=== PATIENT | female | born 1980 | race Caucasian/White ===

== ENCOUNTER 2017-07-29 13:51 | Emergency (ER) | payer BC ==
[2017-07-29] MEDS ORDERED: Sulfamethox/Trimethoprim DS 800/160* TAB PO ONE (16:33)
[2017-07-29 16:47] VITALS: BP 107/74
--- NOTE | 2017-07-30 18:52 | ED ---
Eugenio Gonzalez Thomas, scribed for Alejandro Grimm MD on 07/29/17 at 1635 . Skin Complaint - HPI Summary HPI Summary: The pt is a 36 y/o F presenting to the ED c/o an abscess in her gluteal crease that she first noticed in the last few days. She has had cysts in the region previously, and some of these have been incised and drained. The pt rates the pain 5/10. The pain is aggravated by movement and touch. It is alleviated by nothing. 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 In the past, the patients abscesses have been relieved with a hot bath, although she says her current abscess is too severe for this treatment. PMHx: abscesses. PSHx: incisions and drainages. SHx: no smoking, no alcohol use, no illicit drugs. FHx : DM, CAD. - History of Current Complaint Chief Complaint: EDGeneral Time Seen by Provider: 07/29/17 14:41 Stated Complaint: ABSCESS Hx Obtained From: Patient Onset/Duration: Started Days Ago - onset a few days ago, Still Present Timing: Constant Current Severity: Moderate Pain Intensity: 5 Pain Scale Used: 0-10 Numeric Skin Location: Other: - Gluteal crease Character: Pain, Redness, Raised Aggravating Symptom(s): Touch, Other: - Movement Alleviating Symptom(s): Nothing Associated Signs & Symptoms: Negative Related History: Other: - Hx of abscesses - Allergy/Home Medications Allergies/Adverse Reactions: Allergies Allergy/AdvReac Type Severity Reaction Status Date / Time Penicillins Allergy Rash And Verified 04/28/17 09:08 Itching PMH/Surg Hx/FS Hx/Imm Hx Previously Healthy: No Endocrine/Hematology History: Denies: Hx Diabetes Cardiovascular History: Denies: Hx Hypertension, Hx Pacemaker/ICD History: Denies: Hx Renal Disease Sensory History: Denies: Hx Hearing Aid Psychiatric History: Denies: Hx Panic Disorder - Surgical History Surgery Procedure, Year, and Place: REMOVED CYST ON NECK/NEAR TAIL BONE Infectious Disease History: No Infectious Disease History: Denies: History Other Infectious Disease, Traveled Outside the [place] in Last 30 Days - Family History Known Family History: Positive: Cardiac Disease, Diabetes - Social History Alcohol Use: None Hx Substance Use: No Substance Use Type: Reports: None Hx Tobacco Use: No Smoking Status (MU): Never Smoked Tobacco Have You Smoked in the Last Year: No Review of Systems Negative: Fever Positive: Other - Abscess on gluteal cleft All Other Systems Reviewed And Are Negative: Yes Physical Exam - Summary Physical Exam Summary: VITAL SIGNS: Reviewed. GENERAL: Patient is a well-developed and nourished female is lying comfortable in the stretcher. Patient is not in any acute respiratory distress. HEAD AND FACE: No signs of trauma. No ecchymosis, hematomas or skull depressions. No sinus tenderness. EYES: PERRLA, EOMI x 2, No injected conjunctiva, no nystagmus. EARS: Hearing grossly intact. Ear canals and tympanic membranes are within normal limits. MOUTH: Oropharynx within normal limits. NECK: Supple, trachea is midline, no adenopathy, no JVD, no carotid bruit, no c- spine tenderness, neck with full ROM. CHEST: Symmetric, no tenderness at palpation LUNGS: Clear to auscultation bilaterally. No wheezing or crackles. CVS: Regular rate and rhythm, S1 and S2 present, no murmurs or gallops appreciated. ABDOMEN: Soft, non-tender. No signs of distention. No rebound no guarding, and no masses palpated. Bowel sounds are normal. EXTREMITIES: FROM in all major joints, no edema, no cyanosis or clubbing. NEURO: Alert and oriented x 3. No acute neurological deficits. Speech is normal and follows commands. SKIN: Dry and warm. On her gluteal crease, there is an area with erythema and induration. It is tender. Triage Information Reviewed: Yes Vital Signs On Initial Exam: Initial Vitals Temp Pulse Resp BP Pulse Ox 98.1 F 97 20 148/79 100 07/29/17 13:56 07/29/17 13:56 07/29/17 13:56 07/29/17 13:56 07/29/17 13:56 Vital Signs Reviewed: Yes - [place] Coma Scale Coma Scale Total: 15 Procedures - Incision and Drainage Site: Left middle gluteus Anesthesia: Lidocaine - 1% without Epi Instrument(s): Scalpel Packing: Other - Iodoform Diagnostics - Vital Signs Vital Signs Temp Pulse Resp BP Pulse Ox 07/29/17 13:56 98.1 F 97 20 148/79 100 - Laboratory Lab Statement: Any lab studies that have been ordered have been reviewed, and results considered in the medical decision making process. Course/Dx - Course Assessment/Plan: The pt is a 36 y/o F presenting to the ED c/o an abscess in her gluteal crease that she first noticed in the last few days. She has had cysts in the region previously, and some of these have been incised and drained. The pt rates the pain 5/10. The pain is aggravated by movement and touch. It is alleviated by nothing. 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 In the past, the patients abscesses have been relieved with a hot bath, although she says her current abscess is too severe for this treatment. PMHx: abscesses. PSHx: incisions and drainages. SHx: no smoking, no alcohol use , no illicit drugs. FHx: DM, CAD. In the ED course, I I&Ded the abscess. I sent cultures. There were no complications. The patient was given Bactrim. The wound was packed. The patient will be discharged with follow up by primary care physician in three days for a wound check. The patient is hemodynamically stable and alert and oriented x3. - Diagnoses Provider Diagnoses: Abscess, Cellulitis Discharge - Discharge Plan Condition: Stable Disposition: HOME Prescriptions: Sulfamethox/Trimethoprim DS* [Bactrim DS 800/160 TAB*] 1 tab PO BID #20 tab Patient Education Materials: Cellulitis (ED), Abscess (ED) Referrals: Kvng Lucero MD [Primary Care Provider] - 3 Days Additional Instructions: Follow up with your primary care provider in 3 days. Return to the emergency department for any new or worsening symptoms. The documentation as recorded by the Eugenio connelly Thomas accurately reflects the service I personally performed and the decisions made by Alfa funez Walter, MD.
== END 2017-07-29 16:45 | disposition home or self-care (01) ==
LOC: ED 13:51
DX: L02.31 Cutaneous abscess of buttock (principal); L03.317 Cellulitis of buttock
CPT/HCPCS: 10061; 87070; 87205; 87640; 87641; 99281; A9270-GY

== ENCOUNTER 2017-07-30 10:30 | Emergency (ER) | payer BC ==
[2017-07-30] MEDS ORDERED: Lidocaine 2% PF * 5 ML VIAL INJ ONE (12:15)
[2017-07-30 12:19] VITALS: BP 117/69
--- NOTE | 2017-07-30 13:38 | UC ---
HPI Wound/Suture Re-check - HPI Summary HPI Summary: SEEN LAST NIGHT IN EMERGENCY DEPARTMENT FOR INCISION, DRAINAGE AND PACKING OF PILONIDAL CYST. NO FEVER, NO COMPLICATIONS. WOULD LIKE TO HAVE ABSCESS REPACKED. - History Of Current Complaint Chief Complaint: UCSkin Stated Complaint: SOFT TISSUE Time Seen by Provider: 07/30/17 12:00 Hx Obtained From: Patient Hx Last Menstrual Period: 07/30/17 Onset/Duration: Gradual Onset, Lasting Hours Severity: Moderate Pain Intensity: 4 Pain Scale Used: 0-10 Numeric - Allergies/Home Medications Allergies/Adverse Reactions: Allergies Allergy/AdvReac Type Severity Reaction Status Date / Time Penicillins Allergy Rash And Verified 07/30/17 10:36 Itching PMH/Surg Hx/FS Hx/Imm Hx Previously Healthy: Yes - Surgical History Surgical History: Yes Surgery Procedure, Year, and Place: REMOVED CYST ON NECK/NEAR TAIL BONE - Family History Known Family History: Positive: None Negative: Blood Disorder - Social History Occupation: Employed Full-time Lives: With Family Alcohol Use: None Substance Use Type: None Smoking Status (MU): Never Smoked Tobacco Have You Smoked in the Last Year: No - Immunization History Most Recent Influenza Vaccination: 10/09/14 Most Recent Tetanus Shot: 08/27/14 Most Recent Pneumonia Vaccination: none Review of Systems Constitutional: Negative Skin: Other - S/P I& D OF PILONIDAL CYST RIGHT GLUTEAL CREST Eyes: Negative ENT: Negative Respiratory: Negative Cardiovascular: Negative Gastrointestinal: Negative Genitourinary: Negative Motor: Negative Neurovascular: Negative Musculoskeletal: Negative Neurological: Negative Psychological: Negative Is Patient Immunocompromised?: No All Other Systems Reviewed And Are Negative: Yes Physical Exam Triage Information Reviewed: Yes Appearance: Well-Appearing, No Pain Distress, Well-Nourished Vital Signs: Initial Vital Signs Temp 97.2 F 07/30/17 10:37 Pulse 82 07/30/17 10:37 Resp 16 07/30/17 10:37 BP 113/67 07/30/17 10:37 Pulse Ox 100 07/30/17 10:37 Vital Signs Reviewed: Yes Eye Exam: Normal ENT Exam: Normal ENT: Positive: Normal ENT inspection, Hearing grossly normal, TMs normal Dental Exam: Normal Neck exam: Normal Neck: Positive: Supple, Nontender, No Lymphadenopathy Respiratory Exam: Normal Respiratory: Positive: Chest non-tender, Lungs clear, Normal breath sounds, No respiratory distress, No accessory muscle use Cardiovascular Exam: Normal Cardiovascular: Positive: RRR, No Murmur Abdominal Exam: Normal Musculoskeletal Exam: Normal Neurological Exam: Normal Psychological Exam: Normal Skin: Positive: Other - S/P I& D OF PILONIDAL CYST RIGHT GLUTEAL CREST Procedures - Procedure Summary Procedure Summary: S/P I& D OF PILONIDAL CYST RIGHT GLUTEAL CREST: PURULENT PACKING REMOVED. LIDOCAINE PLAIN 2% INJECTED INTO AREA. 1/"" STERILE PACKING APPLIED 15CM STRIP OF PLAIN GAUZE INTO ABSCESS CAVITY. PATIENT TOLERATED PROCEDURE WELL. Course/Dx - Differential Dx - Laceration/Wound Differential Diagnoses: Abscess, Cellulitis Provider Diagnoses: PILONIDAL CYST; RE-PACKING OF INCISED ABSCESS. Discharge - Discharge Plan Condition: Stable Disposition: HOME Patient Education Materials: Pilonidal Cyst (ED) Referrals: Brandin Pantoja MD [Medical Doctor] - Kvng Lucero MD [Primary Care Provider] -
== END 2017-07-30 12:50 | disposition home or self-care (01) ==
LOC: UCEAST 10:30
DX: Z48.00 Encounter for change or removal of nonsurgical wound dressing (principal); Z88.0 Allergy status to penicillin
CPT/HCPCS: 99212; G0463

== ENCOUNTER 2018-04-20 06:04 | Day surgery (SDC) | payer BC ==
--- NOTE | 2018-04-10 15:14 | HP ---
CC: Dr. Lucero at [facility] * ADMISSION HISTORY AND PHYSICAL: DATE OF ADMISSION: 04/20/18. ATTENDING SURGEON: Dr. Gustabo Flannery * (DALE Epps, dictating). CHIEF COMPLAINT: Pilonidal cyst. 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 She has had two I and Ds performed during that time with intermittent symptoms of pain, bleeding, and/or discharge, and occasionally spontaneous drainage. Her last acute event was the end of last year. Since then she has not had any acute infections or drainage. However, she does occasionally have pain in the tailbone region depending on her activity and/or position i.e., sitting. This is generally relieved by change in position. She was seen in the office by Dr. Flannery on 02/14/18, at which time, exam confirmed the presence of some scar tissue as well as a midline punctum in the intergluteal cleft. He discussed with her the indications, risks, benefits, and alternatives including the possibility of no surgery. She understands the expected perioperative course and would like to proceed to as scheduled with pilonidal cystectomy. PAST MEDICAL HISTORY: No significant active or past medical problems, other than gestational diabetes. PAST SURGICAL HISTORY: Her only previous surgery was excision of a right neck cyst under local anesthesia. CURRENT MEDICATIONS: None. She takes no supplements. DRUG ALLERGIES: PENICILLIN (unspecified childhood reaction). FAMILY HISTORY: Negative for anesthesia problems, bleeding or clotting disorder. SOCIAL HISTORY: The patient is . She has 2 children. 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 She denies use of tobacco, alcohol, or recreational drugs. REVIEW OF SYSTEMS: General: She was having some GI symptoms this past year and as a result of that and dietary modifications has lost 15 to 20 pounds. She states that her weight currently is stable and her GI symptoms have largely abated. Cardiovascular: In the past she would have occasionally have palpitations once or twice a year without any other associated symptoms. She has not had any recent problems. She otherwise denies chest pain, history of hypertension. She does report occasional feelings of what sounds like lightheadedness that respond well to change in position and with no other associated symptoms. Respiratory: No history of asthma, chronic cough, or shortness of breath. GI: As above. No additions. She has never undergone upper endoscopy or colonoscopy. : No problems reported. 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 She believes her last pelvic exams and Pap smear has done within the past 2 years. She was treated with dietary modifications for gestational diabetes. Endocrine: No current diabetes or thyroid dysfunction. Remainder of review of systems is negative. PHYSICAL EXAMINATION GENERAL: Well-nourished, well-developed female, in no acute distress. VITAL SIGNS: Height 5 feet 3 inches, weight 135 pounds, blood pressure 116/80, pulse 72, respirations 16, temperature 97.7. HEENT: Pupils equal, round, and reactive. EOMs intact. No conjunctival pallor. Oropharynx: Teeth in good repair. No intraoral lesions. NECK: No lymphadenopathy in the cervical or supraclavicular regions. No thyromegaly or masses. BREASTS: Not examined. LUNGS: Clear to auscultation. No wheezes. HEART: Regular rate and rhythm. No murmur noted. ABDOMEN: Soft, nontender to palpation. No palpable masses or organomegaly. BACK: No spinous process or CVA tenderness. In the intergluteal cleft, there is evidence of past pilonidal disease as well as a single midline punctum, see also above per Dr. Flannery's exam. GENITALIA: Not done. RECTAL: Not done. EXTREMITIES: No edema. NEUROLOGICAL: Grossly intact. SKIN: Warm and dry. No suspicious rashes or lesions noted (see also above for back). IMPRESSION: Pilonidal cyst. PLAN: Excision, pilonidal cyst. DALE EPPS [id number]/[facility] #: [id number] RODRIGO
[~2018-04-20 06:04] MED LIST: Buffered Lidocaine 0.9% SYRIN* 5 ML/SYR SYRINGE INTRADERM ONE
[2018-04-20] MEDS ORDERED: Buffered Lidocaine 0.9% SYRIN* 5 ML/SYR SYRINGE ONE (06:16)
[2018-04-20] MEDS ORDERED: Clindamycin 900 MG IVPREMIX(* 900 MG/50 ML SDV IV ONE (06:16)
[2018-04-20] MEDS ORDERED: Bupivacaine 0.5% PF 10 ML VIAL INJ ONE (07:13)
[2018-04-20] MEDS ORDERED: Bupivacaine 0.25% W/EPI* 10 ML SDV ONE (07:15)
[2018-04-20] MEDS ORDERED: fentaNYL* 50 MCG/ML 2 ML VIAL (100 MCG VIAL) ONE (07:24)
[2018-04-20] MEDS ORDERED: Midazolam* 1 MG/ML 5 ML VIAL (5 MG) ONE (07:24)
[2018-04-20] MEDS ORDERED: Propofol* 10 MG/ML 20 ML BTL IV PUSH ONE (07:39)
[2018-04-20] MEDS ORDERED: Naloxone* 0.4 MG/ML 1 ML VIAL IV PRN (07:53)
[2018-04-20] MEDS ORDERED: Ketorolac INJ* 30 MG/ML 1 ML VIAL ONE (08:38)
[2018-04-20 09:33] VITALS: BP 115/76
--- NOTE | 2018-04-20 11:14 | OP ---
CC: Dr. Gustabo Flannery; Dr. Kvng Lucero* OPERATIVE REPORT: DATE OF OPERATION: 04/20/18 - [facility] DATE OF : 80 SURGEON: Gustabo Flannery MD SHAREPOINT ADMIN: None. ANESTHESIOLOGIST: Josy Liu MD ANESTHESIA: LMAC anesthesia. PRE-OP DIAGNOSIS: Chronic pilonidal disease. POST-OP DIAGNOSIS: Chronic pilonidal disease. OPERATIVE PROCEDURE: Excision of pilonidal disease. DESCRIPTION OF PROCEDURE: The patient was supine on the operating room table. After intravenous sedation, she was put in the prone jackknife position with the buttocks taped apart. Pilonidal area was prepped with antiseptic and draped in a sterile fashion. Local infiltrative anesthesia was administered. Elliptical incision was created, carried more out to the left side where the previous excision tract was. This was carried down to the presacral fascia and specimen was sent in formalin for pathologic evaluation. The adipose was mobilized more on the patient's right side and 3-0 Vicryl used to bring the adipose together and then 4-0 Prolene interrupted sutures were used for the skin. Sterile gauze dressing was placed. She tolerated the procedure well, was awakened, and brought to Recovery in good condition. No complications. No drains. Pathologic specimen was piloidal disease. Sponge and instrument counts correct. Estimated blood loss was less than 20 mL. [id number]/[facility] #: [id number] MTDD
== END 2018-04-20 09:46 | disposition home or self-care (01) ==
LOC: OR 06:04
PROVIDERS: ATTEND Surgery
DX: L05.91 Pilonidal cyst without abscess (principal); R00.2 Palpitations; F41.9 Anxiety disorder, unspecified
CPT/HCPCS: 81025; 88304; J1885; J2250; J2704; J3010